=== PATIENT | female | born 1955 | race Caucasian/White ===

== ENCOUNTER 2018-06-12 14:28 | Emergency (ER) | payer OTHER ==
[~2018-06-12] VITALS: Ht 157.5 cm; Wt 73.5 kg
[~2018-06-12 14:28] MED LIST: COQ1050 MG PO; LEVO-T75 MCG PO; PROBIOTIC1 EAC3 PO; ROSUVASTATIN CA10 MG PO
[2018-06-12] MEDS ORDERED: CYCLOBENZAPRINE5 MG PO (17:11)
[2018-06-12] MEDS ORDERED: MELOXICAM7.5 MG PO (17:11)
== END 2018-06-12 17:28 | disposition home or self-care (01) ==
LOC: ED 14:28
DX: G44.209 Tension-type headache, unspecified, not intractable (principal); F41.9 Anxiety disorder, unspecified; E11.9 Type 2 diabetes mellitus without complications; Z90.710 Acquired absence of both cervix and uterus; Z90.49 Acquired absence of other specified parts of digestive tract; Z79.899 Other long term (current) drug therapy
CPT/HCPCS: 70450; 80053; 85025; 85651; 96374; 96375; 99284-25; J1885; J2060; J2405

== ENCOUNTER 2019-10-26 09:58 | Day surgery (SDC) | payer OTHER ==
[~2019-10-26] VITALS: Ht 157.5 cm; Wt 71.2 kg
[~2019-10-26 09:58] MED LIST changes: +CYCLOBENZAPRINE5 MG PO; +KEFLEX500 MG PO; +LATANOPROST 0.7.5 ML OP; +LEVO-T50 MCG PO; -LEVO-T75 MCG PO; +MAGNESIUM250 M1 PO; +MELATONIN10 MG PO; +MELOXICAM7.5 MG PO; +NORCO 5-325 TA1 EACH PO; +ONDANSETRON ODT8 MG PO
--- NOTE | 2019-10-26 11:57 | NUR ---
10/26/[address] 1148 PT TO PACU AWAKE AND ALERT DENIES PAIN.
--- NOTE | 2019-10-26 12:29 | NUR ---
PT ALERT, ORIENTED AND IS HAVING FOLLOWUP SCOPE LARGELY DUE TO PREVIOUS COLON SURGERY.PT IS SUPPORTED BY TONIE, ALL QUESTIONS ASKED ANSWERED. PT DID REQUEST PRAYER.
--- NOTE | 2019-10-26 14:49 | OR ---
[facility] [address], [place] [address] Signed DATE OF OPERATION: 10/26/2019 SURGEON: Daysi Quintana MD PREOPERATIVE DIAGNOSES: 1. History of sigmoid resection for diverticular disease. 2. History of hyperplastic polyp x2, 2010. POSTOPERATIVE DIAGNOSES: 1. Extensive residual diverticulosis. 2. Small polyp at 80 cm excised. PROCEDURE: Total colonoscopy to cecum with cold morcellation polypectomy x1. ANESTHESIA: Intravenous sedation, fentanyl 100 mcg and Versed 4 mg. INDICATION: This 64-year-old white woman continues to see Dr. Vinny Carmichael in [place], [place]. She has a history of sigmoid resection for diverticular disease in 2010 and hyperplastic polyps x2 noted in 2010. She is asymptomatic currently. She is admitted to undergo surveillance colonoscopy, understand the risks of bleeding, infection, perforation. FINDINGS: Prep was good. Complete colonoscopy was undertaken to the cecum without question. She had extensive residual diverticular disease, but no sign of stricture or other abnormality. A small polyp was noted at 80 cm, which was excised completely. DESCRIPTION OF PROCEDURE: The patient was brought to the endoscopy suite and placed in lateral decubitus position, given intravenous sedation to the point of slurred speech and nystagmus. Digital rectal examination was normal. An Olympus video colonoscope was passed in the rectum and manipulated throughout the colon ultimately intubating the cecum itself. The ileocecal valve and appendiceal orifice were normal. Scope was withdrawn from that point and examination throughout showed no sign of abnormality until about 80 cm from the anal verge where a small polyp was noted, this was excised with single morcellation polypectomy technique. The scope was further withdrawn identifying once again numerous diverticula of the residual colon. Electronically Signed By: DAYSI QUINTANA MD 10/26/19 1449 PATIENT NAME: GEORGIANA TAPIA OPERATIVE REPORT DATE OF : 57 REPORT #: [id number] PHYSICIAN: DAYSI QUINTANA MD PCP: VINNY CARMICHAEL DO REPORT IS CONFIDENTIAL AND NOT TO BE RELEASED WITHOUT AUTHORIZATION [facility] [address], [place] [address] Signed The lowest part of the examination in the colorectal anastomosis was normal. The rectum was normal. Retroflexed view was normal. Scope was removed. The patient was taken to the recovery room in good condition. CONCLUDING DIAGNOSIS: 1. Extensive diverticulosis. 2. Polyp x1. PLAN: Recommend a repeat colonoscopy in 3-5 years sooner if clinically indicated. We will recommend high-fiber diet as well. MD YVONNE Bradshaw/NICK /[id number] cc: Vinny Carmichael DO Copies: VINNY CARMICHAEL DO ~ Electronically Signed By: DAYSI QUINTANA MD 10/26/19 1449 PATIENT NAME: GEORGIANA TAPIA OPERATIVE REPORT DATE OF : 57 REPORT #: [id number] PHYSICIAN: DAYSI QUINTANA MD PCP: VINNY CARMICHAEL DO REPORT IS CONFIDENTIAL AND NOT TO BE RELEASED WITHOUT AUTHORIZATION
--- NOTE | 2019-10-29 13:57 | PATH ---
[facility] [address] [place], [place] [address] Signed SPECIMEN(S): A COLON POLYP AT 80 CM SPECIMEN SOURCE: A. COLON POLYP AT 80 CM CLINICAL HISTORY: Surveillance colonoscopy, history of hypertrophic polyp, diverticulosis, partial colon resection, diverticulosis, polyp x 1. MICROSCOPIC DESCRIPTION: Histologic sections of all submitted blocks are examined by light microscopy. These findings, together with the gross examination, support the pathologic diagnosis. FINAL PATHOLOGIC DIAGNOSIS: Colon polyp at 80 cm, polypectomy: - Tubular adenoma. DDF:cml:C2NR GROSS DESCRIPTION: The specimen, labeled "AT, colon polyp at 80 cm," is received in formalin and consists of one cardona soft tissue fragment that measures 0.2 cm in greatest dimension. The specimen is entirely submitted in cassette (A1). JS (under the direct supervision of a pathologist) The Gross Description was prepared using a voice recognition system. The report was reviewed for accuracy; however, sound-alike word errors, addition and/or deletions may occur. If there is any question about this report, please contact Client Services. PERFORMING LABORATORY: The technical component was performed by [facility], [address] [place] [id number] (Charging Board Operator: Dora Pa MD; CLIA# [id number]). [facility] [address] [address] (CLIA# [id number]). Diagnostician: Nick Coppola DO Pathologist Electronically Signed 10/29/2019 PATIENT NAME: GEORGIANA TAPIA PATHOLOGY DATE OF : 57 REPORT #: [id number] PHYSICIAN: ISABEL PATHOLOGY PCP: CECILIA CARMICHAEL DO REPORT IS CONFIDENTIAL AND NOT TO BE RELEASED WITHOUT AUTHORIZATION [address] [address] Signed Copies: ~ PATIENT NAME: GEORGIANA TAPIA PATHOLOGY DATE OF : 57 REPORT #: [id number] PHYSICIAN: ISABEL PATHOLOGY PCP: CECILIA CARMICHAEL DO REPORT IS CONFIDENTIAL AND NOT TO BE RELEASED WITHOUT AUTHORIZATION
== END 2019-10-26 12:15 | disposition home or self-care (01) ==
LOC: DS 09:58 → OPS 09:58 → DS 10:00 → OPS 12:15
PROVIDERS: Surgery
PROC: 0DBE8ZZ Excision of Large Intestine, Via Natural or Artificial Opening Endoscopic (ICD-10-PCS; principal; 2019-10-26 10:00)
DX: Z12.11 Encounter for screening for malignant neoplasm of colon (principal); D12.6 Benign neoplasm of colon, unspecified; K57.30 Diverticulosis of large intestine without perforation or abscess without bleeding; E11.9 Type 2 diabetes mellitus without complications; E03.9 Hypothyroidism, unspecified; J45.909 Unspecified asthma, uncomplicated; G47.30 Sleep apnea, unspecified; Z90.49 Acquired absence of other specified parts of digestive tract; Z86.010 Personal history of colon polyps; Z79.899 Other long term (current) drug therapy
CPT/HCPCS: 99153; G0500; J2250; J3010; J7121

== ENCOUNTER 2022-05-29 06:32 | Emergency (ER) | payer MEDICARE, OTHER ==
[~2022-05-29] VITALS: Ht 157.5 cm; Wt 67.6 kg
[2022-05-29] MEDS ORDERED: METFORMIN HCL500 MG PO (06:44)
--- NOTE | 2022-05-29 07:34 | EKG ---
[facility] [address] [facility] [place], [place] [address] Signed Normal sinus rhythm Normal ECG No previous ECGs available Confirmed by ARASELI CEDILLO MD ([id number]) on 05/29/2022 7:33:54 AM Electronically Signed By: ARASELI CEDILLO MD 05/29/22 0734 PATIENT NAME: WILLIEGEORGIANA ZOLTAN Electrocardiogram DATE OF : 57 PHYSICIAN: ARASELI CEDILLO MD REPORT #: [id number] REPORT IS CONFIDENTIAL AND NOT TO BE RELEASED WITHOUT AUTHORIZATION
[2022-05-29] MEDS ORDERED: CYCLOBENZAPRINE5 MG PO (07:46)
[2022-05-29] MEDS ORDERED: NAPROSYN500 MG PO (07:46)
== END 2022-05-29 08:12 | disposition home or self-care (01) ==
LOC: ED 06:32
DX: R07.89 Other chest pain (principal); M54.12 Radiculopathy, cervical region; E11.9 Type 2 diabetes mellitus without complications; E78.00 Pure hypercholesterolemia, unspecified; Z79.899 Other long term (current) drug therapy; Z79.84 Long term (current) use of oral hypoglycemic drugs; Z20.822 Contact with and (suspected) exposure to COVID-19
CPT/HCPCS: 36415; 71045; 72040; 80053; 83735; 83880; 84484; 85025; 85610; 85730; 87502; 93005; 93010; 96374; 96375; 99285-25; C9803; J1885; J2270; U0003